=== PATIENT | male | born 1935 | race Caucasian/White ===

== ENCOUNTER 2024-07-08 13:10 | Outpatient (OUT) | payer MEDICARE, OTHER, SELFPAY ==
--- NOTE | 2024-07-08 13:20 | ECG_ITS ---
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
--- NOTE | 2024-07-08 13:20 | XR_ITS ---
The [address] [address] Patient Name: ELINA MC MRN: [id number] date: 1935 Sex: M Assigned Patient Location: [facility] Current Patient Location: Accession/Order Number: [id number] Exam Date: 07/08/2024 14:40 Report Date: 07/09/2024 14:52 At the request of: RICHARD AVILA Procedure: XR chest 2V EXAM: XR chest 2V CLINICAL INDICATION: Preop exam COMPARISON: None TECHNIQUE: 2 views of chest performed. FINDINGS: Lungs: Chronic COPD changes. Mild bibasilar airspace opacities. No pleural effusion or pneumothorax. Heart: Cardiac and mediastinal contours are unremarkable. No overt pulmonary vascular congestion. Osseous structures: No acute abnormalities. XR/XR chest 2V IMPRESSION: Bibasilar airspace opacities likely reflect atelectasis/scarring, less likely pneumonia. Electronically authenticated by: OSCAR CHATTERJEE Date: 07/09/2024 14:52
[2024-07-08 14:51] LABS: Anion Gap 12.4; BUN Creatinine Ratio 25.2; Calcium 8.7 mg/dL (8.5-10.1); Carbon Dioxide 29.2 mmol/L (21.0-32.0); Chloride 101 mmol/L (98-107); Estimated GFR (African America >60 (>=60); Estimated GFR (Non-African Ame >60 (>=60); Glucose 94 mg/dL (74-106); Potassium 3.6 mmol/L (3.5-5.1); Sodium 139 mmol/L (136-145)
== END 2024-07-08 13:11 | disposition home or self-care (01) ==
LOC: PST 13:15
PROVIDERS: PCP Family Medicine; Visit Provider Urology
DX: Z01.810 Encounter for preprocedural cardiovascular examination (principal); Z01.812 Encounter for preprocedural laboratory examination; N40.1 Benign prostatic hyperplasia with lower urinary tract symptoms; N41.4 Granulomatous prostatitis
CPT/HCPCS: 71046; 80048; 85610; 85730; 93005